=== PATIENT | female | born 1995 | race Caucasian/White ===

== ENCOUNTER → 2017-04-06 | Outpatient (CLI) | payer OTHER ==
[~2017-04-06] MED LIST: ONDA4TAB PO; PREN-127 PO
[2017-04-06 23:40] VITALS: BMI 24.6
== END ==
LOC: AMB 21:36
PROVIDERS: ATTEND Nurse Practitioner
DX: M79.605 Pain in left leg (principal); M79.604 Pain in right leg; Z3A.00 Weeks of gestation of pregnancy not specified; V48.9XXA Unspecified car occupant injured in noncollision transport accident in traffic accident, initial encounter; Y92.411 Interstate highway as the place of occurrence of the external cause
CPT/HCPCS: A0425; A0427